=== PATIENT | female | born 1955 ===

== ENCOUNTER 2019-11-10 12:55 | IRF | payer OTHER, SELFPAY ==
[2019-11-10 12:55] VITALS: BP 123/67; PULSE 101; RESP 19; TEMP 36.2; O2SAT 96; BMI 24.2
--- NOTE | 2019-11-10 13:14 | ADMGEN ---
This patient, Karoline Marcum, was admitted to [facility] Room 219-01. Patient/family oriented to hospital policies and general routines including ID bracelet, bed and alarms, visiting hours, pain management, procedures, bathroom and other care routines, personal items, smoking policy, room service/diet, and visiting hours. Valuables list has been completed. Information on how to activate the Rapid Response Team has been discussed. Patient/Family are encouraged to report perceived risks to care and to ask questions if they do not understand what they are told or what they should do.
[2019-11-10 15:28] VITALS: BMI 24.2
--- NOTE | 2019-11-10 16:15 | PCCCNOTE ---
On 11/10/19, the student, [Omega Nam ], provided care and completed [facility] documentation on this patient. I have reviewed the student's documentation and agree with the findings.
[2019-11-10 17:14] LABS: Glucose Point of Care 119 (65-105)
[2019-11-10] MEDS: GABAPENTIN 300 MG CAPSULE 900 MG PO (17:50)
[2019-11-10] MEDS: TRIAMCINOLONE ACET 0.1% CREAM 15 GM TUBE 1 APPLIC TOPICAL (17:51)
[2019-11-10] MEDS: ASPIRIN 81 MG CHEWABLE TABLET PO (20:34)
[2019-11-10 20:36] VITALS: PULSE 98
[2019-11-10] MEDS: carvediloL 6.25 MG TABLET PO (20:36)
[2019-11-10] MEDS: CEFDINIR 300 MG CAPSULE PO (20:36)
[2019-11-10] MEDS: DICYCLOMINE HCL 10 MG CAPSULE 20 MG PO (20:37)
[2019-11-10] MEDS: guaiFENesin 12 HR 600 MG TABCR 1200 MG PO (20:38)
[2019-11-10] MEDS: FAMOTIDINE 10 MG TABLET PO (20:38)
[2019-11-10] MEDS: LOVASTATIN 20 MG TABLET 40 MG PO (20:39)
[2019-11-10] MEDS: MELOXICAM 7.5 MG TABLET 15 MG PO (20:40)
[2019-11-10] MEDS: polyethylene glycoL 3350 17 GM POWD.PACK PO (20:40)
[2019-11-10] MEDS: MELATONIN 5 MG TABLET PO (20:40)
[2019-11-10] MEDS: traZODone HCL 50 MG TABLET 150 MG PO (20:42)
[2019-11-10] MEDS: FLUTICASONE/SALMETEROL 115-21 MCG INHALER 1 PUFF 2 PUFF INHALATION (20:55)
[2019-11-10 21:04] VITALS: PULSE 97; RESP 18
[2019-11-10 22:00] VITALS: BP 121/77; PULSE 109; RESP 16; TEMP 36.6; O2SAT 100
[2019-11-11 04:56] LABS: Basophils Absolute Auto 0.1 K/mm3 (0.0-0.1); Basophils Percent Auto 0.9 % (0.2-1.2); Eosinophils Absolute Auto 0.3 K/mm3 (0-0.3); Eosinophils Percent Auto 4.1 % (0-4.4); Hematocrit 28.9 % (37.0-47.0); Hemoglobin 9.3 g/dL (12.0-15.0); Immature Granulocyte Absolute 0.28 K/mm3 (0.00-0.031); Immature Granulocyte Percent A 3.7 % (0-0.5); Mean Corpuscular HGB Conc 32.2 g/dl (32-36); Mean Corpuscular Hemoglobin 28.9 pg (26-34); Mean Corpuscular Volume 89.8 fl (80-100); Mean Platelet Volume 9.4 fl (7.4-10.4); Monocytes Absolute Auto 1.2 K/mm3 (0.1-0.6); Monocytes Percent Auto 16.4 % (2.6-8.5); Neutrophils Absolute Auto 2.9 K/mm3 (1.3-6.7); Neutrophils Percent Auto 38.9 % (45.5-73.1); Platelet Count Result 311 k/mm3 (150-375); Red Blood Count 3.22 M/mm3 (4.2-5.4); Red Cell Distribution Width 13.5 % (11.5-14.5); White Blood Count 7.5 K/mm3 (4.5-10.0)
[2019-11-11 05:07] LABS: Hemoglobin A1C 6.2 % (<5.7)
[2019-11-11 05:08] LABS: Blood Urea Nitrogen 20 mg/dL (7-17); Calcium 10.8 mg/dL (8.4-10.2); Carbon Dioxide 29 mmol/L (22-30); Chloride 99 mmol/L (98-107); Estimated CRCL calculation 52 ml/min; Estimated Glomerular Filt Rate 56; Glucose 166 mg/dL (65-105); Potassium 4.1 mmol/L (3.4-5.0); Sodium 134 mmol/L (137-145)
[2019-11-11 06:00] VITALS: BP 104/65; PULSE 80; RESP 16; TEMP 36.9; O2SAT 100
[2019-11-11] MEDS: LEVOTHYROXINE SODIUM 125 MCG TABLET PO (06:23)
[2019-11-11] MEDS: FLUTICASONE/SALMETEROL 115-21 MCG INHALER 1 PUFF 2 PUFF INHALATION ×2 (07:02→20:55)
[2019-11-11 07:25] LABS: Glucose Point of Care 140 (65-105)
[2019-11-11] MEDS: ARIPIPRAZOLE 5 MG TABLET PO (08:48)
[2019-11-11] MEDS: CEFDINIR 300 MG CAPSULE PO ×2 (08:50→20:36)
[2019-11-11] MEDS: DICYCLOMINE HCL 10 MG CAPSULE 20 MG PO ×2 (08:50→20:38)
[2019-11-11] MEDS: ESCITALOPRAM OXALATE 5 MG TABLET PO (08:57)
[2019-11-11] MEDS: DULoxetine HCL 60 MG CAPSULE.DR PO (08:57)
[2019-11-11] MEDS: FAMOTIDINE 10 MG TABLET PO ×2 (08:57→20:38)
[2019-11-11] MEDS: FLUTICASONE PROPIONATE 0.05% NA SPR 16 GM BTL (*BKC) 2 SPRAY NASAL (08:58)
[2019-11-11] MEDS: FOLIC ACID 1 MG TABLET PO (08:58)
[2019-11-11] MEDS: GABAPENTIN 300 MG CAPSULE 900 MG PO ×3 (08:59→17:49)
[2019-11-11] MEDS: NICOTINE (*PBKC) 21 MG PATCH 1 PATCH TRANSDERM (08:59)
[2019-11-11] MEDS: guaiFENesin 12 HR 600 MG TABCR 1200 MG PO ×2 (08:59→20:36)
[2019-11-11] MEDS: VITAMIN E 400 UNIT CAPSULE 800 UNIT PO (09:00)
[2019-11-11] MEDS: DULoxetine HCL 30 MG CAPSULE.DR PO (09:00)
[2019-11-11 10:40] VITALS: PULSE 80
[2019-11-11] MEDS: ASPIRIN 81 MG CHEWABLE TABLET PO ×2 (10:40→20:38)
[2019-11-11] MEDS: carvediloL 6.25 MG TABLET PO ×2 (10:40→20:38)
[2019-11-11 11:23] VITALS: BMI 24.2
--- NOTE | 2019-11-11 11:30 | WPDREHABHP ---
H&P: HPI History of Present Illness Chief complaint: Right Femoral Neck Fracture Narrative: Karoline Marcum is a 64 year old female HISTORY OF PRESENT ILLNESS: The patient's primary rehab impairment category is 0 0-argcfnrebw-lffsk extremity fracture The etiologic diagnosis is closed angulated subcapital right femoral neck fracture with slight impaction I saw this patient [id number] on December 08, 2019 at 11:30 a.m. The patient is a 64-year-old right-handed white woman with a past medical history of nonischemic cardiomyopathy, depression, hypertension, hyperlipidemia, hypothyroidism, congestive heart failure, diabetes mellitus, neuropathy, coronary artery disease, chronic obstructive pulmonary disease, and stage 3 chronic kidney disease who presented to [facility] on November 03, 2019 after tripping over on her CT and falling onto her right side. She fell or trip over because of her Cat. She was found to have right femoral neck fracture. Then she was transferred to [facility] in a [facility] area the same day. She denies loss of consciousness or head trauma. orthopedic surgery was consulted the patient underwent a right hip hemiarthroplasty and November 05, [address] Perez. cardiology was consulted prior to surgery for clearance and followed patient throughout hospital stay and deemed patient is stable from their standpoint. She is weight-bearing as tolerated to the right lower extremity. She developed pneumonia with an increase in WBC and fever. Patient was started on IV cefepime and vancomycin with subsequent drop in WBCs in fever she completed a course of antibiotics. Patient is receiving p.r.n. nebulizer treatments and inhalers. She is on room air in oxygens saturations are stable at 93% the patient is going to be discharged to us with Lovenox as DVT prophylaxis The patient has not traveled outside the [place] or had contact with someone who is ill that has traveled outside the [place] in the past 21 days. The patient has not traveled to an area of the [place] that is experiencing known transmission of the Coronavirus and has not had close personal contact with anyone that has. The patient does not have a fever chills sore throat she does not have any lower respiratory illness symptoms. Therapy was initiated at the acute care facility and the patient transferred to us from [facility] on November 10 2019 on FALLS OR SURGERIES: The patient has had major surgeries in the 100 days prior to admission. They had falls in the past year. They had falls with injury in the past year. PAST MEDICAL HISTORY: abdominal pain and bloating, acute renal failure, acute respiratory failure with hypoxemia, asthma, cardiomyopathy, cataracts, chronic kidney disease stage 3, chronic obstructive pulmonary disease, coronary artery disease, depression with psychosis, diabetes mellitus type 2, diabetic neuropathy, diastolic congestive heart failure, hypothyroidism, encephalopathy, gastroesophageal reflux disease, urinary tract infection, hypercholesterolemia, hyperlipidemia, hypertension, major depressive disorder, muscle weakness generalized, idiopathic peripheral neuropathy /autonomic neuropathy possibly related to chronic alcoholism which she says she quit 5 years ago. 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 She has a tub/shower unit and elevated ADA height toilet. The patient was independent with most ADLs, independent with functional transfers, independent with ambulation. She uses a straight cane for ambulation at baseline. She needs assistan
[2019-11-11 14:00] VITALS: BP 114/72; PULSE 94; RESP 18; TEMP 36; O2SAT 100
--- NOTE | 2019-11-11 14:13 | RPD ---
INDIVIDUALIZED PLAN OF CARE FOR Karoline Marcum Brief Synthesis of Pre-Admission Screen, Post-Admission Evaluation and Therapy Evaluations: The patient presents to rehab with a closed angulated subcapital right femoral neck fracture with slight impaction. Comorbidities include acute respiratory failure with hypoxia, hypercalcemia, L5 spondylolisthesis, congestive heart failure, non-ischemic cardiomyopathy, hypothyroidism, depression, diabetes mellitus type 2 with neuropathy, chronic kidney disease stage 3, chronic obstructive pulmonary disease, coronary artery disease, hypertension, hyperlipidemia, acute pain, hyponatremia, sepsis, pneumonia, and acute blood loss anemia. The patient?s needs will be best met in an intensive program vs. at a lower level of care. The patient requires physician services for medical oversight, management of postop complications in setting of present comorbidities, and pain management. The patient requires nursing services for DVT prophylactics, infection protection, medication management and education, pressure relief, and wound care. Deficits include:ADLs, Balance, Endurance, Family Training/Education, Mobility, Pain Management, ROM, Safety, Strength, and Transfers. Head Up Operator/Case Management for: Discharge Planning and Patient/Family Counseling Physical Therapy: 5 days per week for 90 minutes. Treatments may include: Therapeutic Exercise, Gait Training, Neuromuscular Re-education, Transfer Training, Community Reintegration, Bed Mobility, Patient/Family Education, Wheelchair Mobility Group Therapy/Concurrent Therapy Rationales: -Improve attention span during functional activities in a distracted environment. -Enhance problem solving and/or adequate judgment skills during functional activities in a distracted environment. -Promote increased safety awareness in a distracted environment to reduce fall risk with functional tasks, transfers, and ambulation to allow a more safe, self-sufficient return to the home environment. -Improve dynamic balance skills to promote safety and independence with functional activities in a distracted environment for maximum gain. Occupational Therapy: 5 days per week for 90 minutes. Treatments may include: Therapeutic Exercise, Therapeutic Activity, Cognitive Training, Self-Care Transfer Training, Community Reintegration, Home Management, Patient/Family Education, Wheelchair Mobility Training, Energy Conservation Training Group Therapy/Concurrent Therapy Rationales: -Allow therapist to observe and teach generalization and carry-over of skills learned in individual therapy. -Enhance problem solving and sequencing skills during therapeutic activities in a distracted environment. -Promote increased safety awareness in a realistic setting to reduce fall risk with functional tasks due to visual and verbal distractions. -Increase functional level with ADLs, ADL transfers and use of adaptive equipment through therapeutic activities with others while promoting safety to allow a more safe, self-sufficient return home. Medical Prognosis: Good Anticipated Length of Stay: 10 days Rehab Goals: Eating Goal: 06-Independent Oral Hygiene Goal: 06-Independent Toileting Hygiene Goal: 06-Independent Shower/Bathe Self Goal: 06-Independent Upper Body Dressing Goal: 06-Independent Lower Body Dressing Goal: 06-Independent Putting On/Taking Off Footwear Goal: 06-Independent Rolling Left and Right Goal: 05-Setup or Clean Up Assistance Sit to Lying Goal: 06-Independent Lying to Sitting on Side of Bed Goal: 06-Independent Sit to Stand Goal: 06-Independent Chair/Vpv-hk-[id number] Transfer Goal: 06-Independent Toilet Transfer Goal: 06-Independent Car Transfer Goal: 06-Independent Walk 10' Goal: 06-Independent Walk 50' with Two Turns Goal: 06-Independent Walk 150' Goal: 06-Independent Walk 10' on Uneven Surface Goal: 06-Independent 1 Step (Curb) Goal: 06-Independent 4 Steps Goal: 06-Independent 12 Steps Goal Score: 0
[2019-11-11] MEDS: TRIAMCINOLONE ACET 0.1% CREAM 15 GM TUBE 1 APPLIC TOPICAL (17:50)
[2019-11-11 18:06] LABS: Glucose Point of Care 134 (65-105)
[2019-11-11] MEDS: ENOXAPARIN 30 MG/0.3 ML SYRINGE SUB-Q (18:17)
--- NOTE | 2019-11-11 19:09 | PC.NURSE ---
rt hip coverlet dsg changed-lalitha intact. Well approximated.
[2019-11-11] MEDS: polyethylene glycoL 3350 17 GM POWD.PACK PO (20:35)
[2019-11-11] MEDS: LOVASTATIN 20 MG TABLET 40 MG PO (20:36)
[2019-11-11] MEDS: MELATONIN 5 MG TABLET PO (20:36)
[2019-11-11 20:38] VITALS: PULSE 78
[2019-11-11] MEDS: traZODone HCL 50 MG TABLET 150 MG PO (20:38)
[2019-11-11] MEDS: MELOXICAM 7.5 MG TABLET 15 MG PO (20:39)
[2019-11-11] MEDS: MAGNESIUM HYDROXIDE SUSP 30 ML UDC PO (20:50)
[2019-11-11 22:00] VITALS: BP 122/65; PULSE 92; RESP 20; TEMP 36.1; O2SAT 98
[2019-11-12] MEDS: BISACODYL 10 MG SUPPOSITORY RECTAL (05:12)
[2019-11-12] MEDS: LEVOTHYROXINE SODIUM 125 MCG TABLET PO (05:13)
[2019-11-12 05:35] VITALS: BP 125/72; PULSE 84; RESP 18; TEMP 35.2; O2SAT 97
[2019-11-12 06:47] LABS: Glucose Point of Care 149 (65-105)
[2019-11-12] MEDS: FLUTICASONE/SALMETEROL 115-21 MCG INHALER 1 PUFF 2 PUFF INHALATION ×2 (07:37→19:44)
[2019-11-12] MEDS: CEFDINIR 300 MG CAPSULE PO ×2 (08:37→20:18)
[2019-11-12] MEDS: ASPIRIN 81 MG CHEWABLE TABLET PO ×2 (08:37→20:18)
[2019-11-12] MEDS: DICYCLOMINE HCL 10 MG CAPSULE 20 MG PO ×2 (08:37→20:23)
[2019-11-12] MEDS: ARIPIPRAZOLE 5 MG TABLET PO (08:37)
[2019-11-12] MEDS: ESCITALOPRAM OXALATE 5 MG TABLET PO (08:38)
[2019-11-12] MEDS: DULoxetine HCL 60 MG CAPSULE.DR PO (08:38)
[2019-11-12] MEDS: DULoxetine HCL 30 MG CAPSULE.DR PO (08:38)
[2019-11-12] MEDS: FLUTICASONE PROPIONATE 0.05% NA SPR 16 GM BTL (*BKC) 2 SPRAY NASAL (08:38)
[2019-11-12] MEDS: FAMOTIDINE 10 MG TABLET PO ×2 (08:38→20:19)
[2019-11-12] MEDS: FOLIC ACID 1 MG TABLET PO (08:39)
[2019-11-12] MEDS: NICOTINE (*PBKC) 21 MG PATCH 1 PATCH TRANSDERM (08:39)
[2019-11-12] MEDS: GABAPENTIN 300 MG CAPSULE 900 MG PO ×3 (08:39→17:09)
[2019-11-12] MEDS: guaiFENesin 12 HR 600 MG TABCR 1200 MG PO ×2 (08:39→20:18)
[2019-11-12] MEDS: VITAMIN E 400 UNIT CAPSULE 800 UNIT PO (08:39)
[2019-11-12 08:40] VITALS: PULSE 84
[2019-11-12] MEDS: carvediloL 6.25 MG TABLET PO ×2 (08:40→20:19)
[2019-11-12 14:00] VITALS: BP 138/74; PULSE 88; RESP 19; TEMP 36.1; O2SAT 99
[2019-11-12] MEDS: ENOXAPARIN 40 MG/0.4 ML SYRINGE SUB-Q (15:56)
[2019-11-12] MEDS: TRIAMCINOLONE ACET 0.1% CREAM 15 GM TUBE 1 APPLIC TOPICAL (17:10)
[2019-11-12 17:23] LABS: Glucose Point of Care 138 (65-105)
[2019-11-12] MEDS: traZODone HCL 50 MG TABLET 150 MG PO (20:17)
[2019-11-12] MEDS: LOVASTATIN 20 MG TABLET 40 MG PO (20:18)
[2019-11-12] MEDS: MELATONIN 5 MG TABLET PO (20:18)
[2019-11-12] MEDS: MELOXICAM 7.5 MG TABLET 15 MG PO (20:18)
[2019-11-12 20:19] VITALS: PULSE 84
[2019-11-12] MEDS: polyethylene glycoL 3350 17 GM POWD.PACK PO (20:23)
[2019-11-12 22:00] VITALS: BP 91/62; PULSE 85; RESP 18; TEMP 35.9; O2SAT 100
[2019-11-13 05:55] VITALS: BP 108/59; PULSE 67; RESP 18; TEMP 35.7; O2SAT 92
[2019-11-13] MEDS: LEVOTHYROXINE SODIUM 125 MCG TABLET PO (06:31)
[2019-11-13 07:02] LABS: Glucose Point of Care 123 (65-105)
[2019-11-13] MEDS: FLUTICASONE/SALMETEROL 115-21 MCG INHALER 1 PUFF 2 PUFF INHALATION ×2 (07:54→19:43)
[2019-11-13 08:54] VITALS: PULSE 67
[2019-11-13] MEDS: ARIPIPRAZOLE 5 MG TABLET PO (08:54)
[2019-11-13] MEDS: ASPIRIN 81 MG CHEWABLE TABLET PO ×2 (08:54→19:41)
[2019-11-13] MEDS: carvediloL 6.25 MG TABLET PO ×2 (08:54→19:42)
[2019-11-13] MEDS: CEFDINIR 300 MG CAPSULE PO ×2 (08:55→19:38)
[2019-11-13] MEDS: DULoxetine HCL 30 MG CAPSULE.DR PO (08:56)
[2019-11-13] MEDS: DICYCLOMINE HCL 10 MG CAPSULE 20 MG PO ×2 (08:56→19:39)
[2019-11-13] MEDS: DULoxetine HCL 60 MG CAPSULE.DR PO (08:58)
[2019-11-13] MEDS: FOLIC ACID 1 MG TABLET PO (08:58)
[2019-11-13] MEDS: ESCITALOPRAM OXALATE 5 MG TABLET PO (08:58)
[2019-11-13] MEDS: GABAPENTIN 300 MG CAPSULE 900 MG PO ×3 (08:58→17:56)
[2019-11-13] MEDS: FAMOTIDINE 10 MG TABLET PO ×2 (08:58→19:39)
[2019-11-13] MEDS: FLUTICASONE PROPIONATE 0.05% NA SPR 16 GM BTL (*BKC) 2 SPRAY NASAL (08:58)
[2019-11-13] MEDS: NICOTINE (*PBKC) 21 MG PATCH 1 PATCH TRANSDERM (08:59)
[2019-11-13] MEDS: guaiFENesin 12 HR 600 MG TABCR 1200 MG PO ×2 (08:59→19:37)
[2019-11-13] MEDS: VITAMIN E 400 UNIT CAPSULE 800 UNIT PO (08:59)
--- NOTE | 2019-11-13 12:00 | WPDNEURORHBP ---
Subjective Date/time seen: S/P right femur neck fracture with ICD dual chamber generator S/p partial [id number]/05/20 12:00 Review of Systems Review of Systems: All systems reviewed & are unremarkable except as noted in HPI and below Functional Status Ambulation Ability Ability to Ambulate 10 Feet: Standby Assistance Ability to Ambulate 50 Feet With 2 Turns: Standby Assistance Ability to Ambulate 150 Feet: Standby Assistance Ambulation Assistive Devices: Walker, Wheeled Transfers Ability Ability to Transfer In/Out of Chair: Standby Assistance Exam Const: General: cooperative, comfortable, no acute distress and well developed Orientation/consciousness: patient oriented x3 Other: s/p femur fx HENMT: Head: normal to inspection General nose exam: Normal external nose present and No nasal discharge present Face and sinus: normal facial exam Mouth: Yes Normal oral and palatal mucosa present Eyes: General: appearance normal, both eyes and all related structures Neck: Neck: full ROM Resp: Effort & Inspection: normal respiratory effort Cardio: Rate: regular rate Rhythm: regular rhythm GI: Auscultation: normal bowel sounds Skin: General skin exam: no rashes or lesions noted Neuro: General: patient oriented x3 and moves all extremities Cranial nerves: Yes CN's II-XII intact bilaterally, Yes Equal, round and reactive pupils present, Yes Bilaterally intact EOM present, Yes Nystagmus not present, Yes Normal facial strength present, Yes facial symmetry, Yes Midline tongue present, Yes Ability to bilaterally rotate head present and Yes Ability to bilaterally elevate shoulders present Cognition (Neuro): normal cognition Speech: normal speech Motor exam (neuro): 5/5 motor strength present throughout Sensory Exam: Sensory deficit (Neuro) (distally) Deep tendon reflexes (DTR's): Right ankle reflex intensity grade: 0 and Left ankle reflex intensity grade: 0 Plantar Reflex Responses: downgoing: bilateral Extrem: General: normal to inspection Psych: Appearance: grossly normal Objective Data Vital Signs Vital Signs: Vital Signs - 24 hr 11/12/19 14:00 11/12/19 20:19 11/12/19 22:00 Temperature 36.1 C L 35.9 C L Pulse Rate 88 84 85 Respiratory Rate 19 18 Blood Pressure 138/74 91/62 L Pulse Oximetry 99 100 11/13/19 05:55 11/13/19 08:54 Temperature 35.7 C L Pulse Rate 67 67 Respiratory Rate 18 Blood Pressure 108/59 L Pulse Oximetry 92 Intake/Output Intake/Output: Intake & Output 11/10/19 11/11/19 11/12/19 11/13/19 23:59 23:59 23:59 23:59 Intake Total 240 840 840 480 Balance 240 840 840 480 Meds/Results Medications: Active Medications Generic Name Dose Route Start Last Admin Trade Name Freq PRN Reason Stop Dose Admin Acetaminophen 650 mg 11/10/19 14:24 Tylenol Tablet PO Q6H PRN Pain (Scale Score 1-3) Hydrocodone Bitart/Acetaminophen 1 tab 11/10/19 14:24 [place] 5-325 Mg PO Q4H PRN Pain (Scale Score 4-6) Hydrocodone Bitart/Acetaminophen 2 tab 11/10/19 14:24 11/13/19 08:53 [place] 5-325 Mg PO 2 tab Q4H PRN Administration Pain (Scale Score 7-10) Al Hydrox/Mg Hydrox/Simethicone 30 ml 11/10/19 14:24 Mylanta PO TID PRN Indigestion Albuterol 2 puff 11/10/19 14:24 Proventil Hfa INHALATION Q6H PRN Shortness Of Breath Aripiprazole 5 mg 11/11/19 09:00 11/13/19 08:54 Abilify PO 5 mg DAILY KYLE Administration Artificial Tears 1 drop 11/10/19 17:00 11/13/19 08:54 Artificial Tears EACH EYE 1 drop TID KYLE Administration Aspirin 81 mg 11/10/19 21:00 11/13/19 08:54 Aspirin Chewable PO 81 mg Q12HR KYLE Administration Benzonatate 100 mg 11/10/19 14:24 Tessalon Perles PO TID PRN Cough Bisacodyl 10 mg 11/10/19 14:24 11/12/19 05:12 Dulcolax Suppository RECTAL 10 mg DAILY PRN Administration Constipation Carvedilol 6.25 mg 11/10/19 21:00 11/13/19 08:54 C
[2019-11-13 14:00] VITALS: BP 113/72; PULSE 98; RESP 20; TEMP 36.1; O2SAT 100
[2019-11-13] MEDS: ENOXAPARIN 40 MG/0.4 ML SYRINGE SUB-Q (14:54)
[2019-11-13 17:17] LABS: Glucose Point of Care 147 (65-105)
[2019-11-13] MEDS: TRIAMCINOLONE ACET 0.1% CREAM 15 GM TUBE 1 APPLIC TOPICAL (17:56)
[2019-11-13] MEDS: MELOXICAM 7.5 MG TABLET 15 MG PO (19:38)
[2019-11-13] MEDS: BENZONATATE 100 MG CAPSULE PO (19:39)
[2019-11-13] MEDS: traZODone HCL 50 MG TABLET 150 MG PO (19:40)
[2019-11-13 19:42] VITALS: PULSE 90
[2019-11-13] MEDS: LOVASTATIN 20 MG TABLET 40 MG PO (19:44)
[2019-11-13] MEDS: polyethylene glycoL 3350 17 GM POWD.PACK PO (19:45)
[2019-11-13] MEDS: MELATONIN 5 MG TABLET PO (19:45)
[2019-11-13] MEDS: DOCUSATE SODIUM 100 MG CAPSULE PO (19:48)
[2019-11-13 22:00] VITALS: BP 123/59; PULSE 87; RESP 18; TEMP 36.7; O2SAT 100
[2019-11-14 06:00] VITALS: BP 125/67; PULSE 74; RESP 17; TEMP 36.6; O2SAT 100
[2019-11-14] MEDS: LEVOTHYROXINE SODIUM 125 MCG TABLET PO (06:15)
[2019-11-14 06:59] LABS: Glucose Point of Care 127 (65-105)
[2019-11-14] MEDS: FLUTICASONE/SALMETEROL 115-21 MCG INHALER 1 PUFF 2 PUFF INHALATION ×2 (08:33)
[2019-11-14] MEDS: ARIPIPRAZOLE 5 MG TABLET PO (09:16)
[2019-11-14] MEDS: NICOTINE (*PBKC) 21 MG PATCH 1 PATCH TRANSDERM (09:16)
[2019-11-14] MEDS: FLUTICASONE PROPIONATE 0.05% NA SPR 16 GM BTL (*BKC) 2 SPRAY NASAL (09:16)
[2019-11-14 09:17] VITALS: PULSE 74
[2019-11-14] MEDS: ASPIRIN 81 MG CHEWABLE TABLET PO ×2 (09:17→21:50)
[2019-11-14] MEDS: CEFDINIR 300 MG CAPSULE PO ×2 (09:17→21:50)
[2019-11-14] MEDS: carvediloL 6.25 MG TABLET PO ×2 (09:17→21:50)
[2019-11-14] MEDS: DICYCLOMINE HCL 10 MG CAPSULE 20 MG PO ×2 (09:18→21:50)
[2019-11-14] MEDS: DOCUSATE SODIUM 100 MG CAPSULE PO ×2 (09:19→21:51)
[2019-11-14] MEDS: DULoxetine HCL 60 MG CAPSULE.DR PO (09:19)
[2019-11-14] MEDS: FOLIC ACID 1 MG TABLET PO (09:20)
[2019-11-14] MEDS: GABAPENTIN 300 MG CAPSULE 900 MG PO ×3 (09:20→17:12)
[2019-11-14] MEDS: DULoxetine HCL 30 MG CAPSULE.DR PO (09:20)
[2019-11-14] MEDS: VITAMIN E 400 UNIT CAPSULE 800 UNIT PO (09:21)
[2019-11-14] MEDS: FAMOTIDINE 10 MG TABLET PO ×2 (09:21→21:51)
[2019-11-14] MEDS: guaiFENesin 12 HR 600 MG TABCR 1200 MG PO ×2 (09:21→21:51)
[2019-11-14] MEDS: ESCITALOPRAM OXALATE 5 MG TABLET PO (09:21)
[2019-11-14] MEDS: polyethylene glycoL 3350 17 GM POWD.PACK PO ×2 (09:47→21:54)
[2019-11-14] MEDS: ENOXAPARIN 40 MG/0.4 ML SYRINGE SUB-Q (09:47)
[2019-11-14] MEDS: ACETAMINOPHEN 325 MG TABLET 650 MG PO (13:31)
[2019-11-14 14:00] VITALS: BP 128/76; PULSE 90; RESP 20; TEMP 36.5; O2SAT 98
--- NOTE | 2019-11-14 14:43 | PCPTNOTE ---
Karoline Marcum was evaluated for a wheeled walker on 11/14/2019 by this physical therapist obstetric assistant. The wheeled walker will resolve patient's mobility limitations and will be used for ADL's within the home. The patient can safely use the wheeled walker. ?The wheeled walker will resolve the patient?s mobility deficits, including decreased strength, endurance and impaired balance.
[2019-11-14 16:56] LABS: Glucose Point of Care 119 (65-105)
[2019-11-14] MEDS: TRIAMCINOLONE ACET 0.1% CREAM 15 GM TUBE 1 APPLIC TOPICAL (17:14)
[2019-11-14 20:17] VITALS: PULSE 78; RESP 18
[2019-11-14 21:50] VITALS: PULSE 78
[2019-11-14] MEDS: LOVASTATIN 20 MG TABLET 40 MG PO (21:52)
[2019-11-14] MEDS: MELOXICAM 7.5 MG TABLET 15 MG PO (21:53)
[2019-11-14] MEDS: MELATONIN 5 MG TABLET PO (21:53)
[2019-11-14] MEDS: traZODone HCL 50 MG TABLET 150 MG PO (21:54)
[2019-11-14 22:00] VITALS: BP 130/61; PULSE 79; RESP 20; TEMP 36.8; O2SAT 100
[2019-11-14] MEDS: BISACODYL 10 MG SUPPOSITORY RECTAL (22:00)
[2019-11-15] VITALS (7 sets, daily range): BP systolic 101–121; BP diastolic 61–79; PULSE 70–85; RESP 18–20; TEMP 36.2–36.6; O2SAT 94–99
[2019-11-15] MEDS: LEVOTHYROXINE SODIUM 125 MCG TABLET PO (05:49)
[2019-11-15 06:44] LABS: Glucose Point of Care 119 (65-105)
[2019-11-15] MEDS: GABAPENTIN 300 MG CAPSULE 900 MG PO ×3 (09:23→17:03)
[2019-11-15] MEDS: NICOTINE (*PBKC) 21 MG PATCH 1 PATCH TRANSDERM (09:23)
[2019-11-15] MEDS: VITAMIN E 400 UNIT CAPSULE 800 UNIT PO (09:23)
[2019-11-15] MEDS: CEFDINIR 300 MG CAPSULE PO ×2 (09:24→21:09)
[2019-11-15] MEDS: ERGOCALCIFEROL 50,000 UNIT CAPSULE 50000 UNITS PO (09:24)
[2019-11-15] MEDS: ASPIRIN 81 MG CHEWABLE TABLET PO ×2 (09:24→20:21)
[2019-11-15] MEDS: carvediloL 6.25 MG TABLET PO ×2 (09:24→20:22)
[2019-11-15] MEDS: ARIPIPRAZOLE 5 MG TABLET PO (09:25)
[2019-11-15] MEDS: DOCUSATE SODIUM 100 MG CAPSULE PO ×2 (09:26→21:09)
[2019-11-15] MEDS: DICYCLOMINE HCL 10 MG CAPSULE 20 MG PO ×2 (09:26→20:20)
[2019-11-15] MEDS: FAMOTIDINE 10 MG TABLET PO ×2 (09:26→20:20)
[2019-11-15] MEDS: ESCITALOPRAM OXALATE 5 MG TABLET PO (09:26)
[2019-11-15] MEDS: FOLIC ACID 1 MG TABLET PO (09:27)
[2019-11-15] MEDS: DULoxetine HCL 30 MG CAPSULE.DR PO (09:27)
[2019-11-15] MEDS: ENOXAPARIN 40 MG/0.4 ML SYRINGE SUB-Q (09:27)
[2019-11-15] MEDS: FLUTICASONE PROPIONATE 0.05% NA SPR 16 GM BTL (*BKC) 2 SPRAY NASAL (09:27)
[2019-11-15] MEDS: DULoxetine HCL 60 MG CAPSULE.DR PO (09:27)
[2019-11-15] MEDS: guaiFENesin 12 HR 600 MG TABCR 1200 MG PO ×2 (09:28→20:20)
[2019-11-15] MEDS: polyethylene glycoL 3350 17 GM POWD.PACK PO ×2 (09:28→21:09)
[2019-11-15] MEDS: FLUTICASONE/SALMETEROL 115-21 MCG INHALER 1 PUFF 2 PUFF INHALATION ×2 (09:44→21:37)
--- NOTE | 2019-11-15 10:44 | WPDNEURORHBP ---
Subjective Date/time seen: 11/15/19 10:44 Interval history: this 64-year-old woman is here after having had surgery her right femoral neck fracture. She is doing fairly well however does complain of neuropathic pain which I will look into it what medication she will use after reviewing all her medication at this point she is denies any headache nausea vomiting chest pain shortness of breath. She has been using a wheeled walker of 250 feet and has been able to use a full flight of stare Review of Systems Review of Systems: All systems reviewed & are unremarkable except as noted in HPI and below Functional Status Ambulation Ability Ability to Ambulate 10 Feet: Standby Assistance Ability to Ambulate 50 Feet With 2 Turns: Standby Assistance Ability to Ambulate 150 Feet: Standby Assistance Ambulation Assistive Devices: Walker, Wheeled Transfers Ability Ability to Transfer In/Out of Chair: Standby Assistance Exam Const: General: comfortable and no acute distress HENMT: General nose exam: Normal nares present Mouth: Yes moist mucous membranes Eyes: General: appearance normal, both eyes and all related structures Neck: Neck: supple and no JVD Resp: Effort & Inspection: normal respiratory effort Auscultation: clear to auscultation bilaterally Cardio: Rate: regular rate Rhythm: regular rhythm Skin: General skin exam: normal color and no rashes or lesions noted Neuro: Other: patient is awake alert well oriented follows all commands her weakness is improving issues progressing very well in the rehab Extrem: General: normal to inspection Other: the incision of the hip is clean Psych: Mental Status: mental status grossly normal Objective Data Vital Signs Vital Signs: Vital Signs - 24 hr 11/14/19 14:00 11/14/19 20:17 11/14/19 21:50 Temperature 36.5 C Pulse Rate 90 78 78 Respiratory Rate 20 18 Blood Pressure 128/76 Pulse Oximetry 98 11/14/19 22:00 11/15/19 06:00 11/15/19 09:24 Temperature 36.8 C 36.3 C L Pulse Rate 79 70 70 Respiratory Rate 20 20 Blood Pressure 130/61 101/68 Pulse Oximetry 100 94 Intake/Output Intake/Output: Intake & Output 11/12/19 11/13/19 11/14/19 11/15/19 23:59 23:59 23:59 23:59 Intake Total 840 1080 720 360 Balance 840 1080 720 360 Meds/Results Medications: Active Medications Generic Name Dose Route Start Last Admin Trade Name Freq PRN Reason Stop Dose Admin Acetaminophen 650 mg 11/10/19 14:24 11/14/19 13:31 Tylenol Tablet PO 650 mg Q6H PRN Administration Pain (Scale Score 1-3) Hydrocodone Bitart/Acetaminophen 1 tab 11/10/19 14:24 11/14/19 06:12 [place]ma 5-325 Mg PO 1 tab Q4H PRN Administration Pain (Scale Score 4-6) Hydrocodone Bitart/Acetaminophen 2 tab 11/10/19 14:24 11/15/19 02:15 [place] 5-325 Mg PO 2 tab Q4H PRN Administration Pain (Scale Score 7-10) Al Hydrox/Mg Hydrox/Simethicone 30 ml 11/10/19 14:24 Mylanta PO TID PRN Indigestion Albuterol 2 puff 11/10/19 14:24 Proventil Hfa INHALATION Q6H PRN Shortness Of Breath Aripiprazole 5 mg 11/11/19 09:00 11/15/19 09:25 Abilify PO 5 mg DAILY KYLE Administration Artificial Tears 1 drop 11/10/19 17:00 11/15/19 09:25 Artificial Tears EACH EYE 1 drop TID KYLE Administration Aspirin 81 mg 11/10/19 21:00 11/15/19 09:24 Aspirin Chewable PO 81 mg Q12HR KYLE Administration Benzonatate 100 mg 11/10/19 14:24 11/13/19 19:39 Tessalon Perles PO 100 mg TID PRN Administration Cough Bisacodyl 10 mg 11/10/19 14:24 11/14/19 22:00 Dulcolax Suppository RECTAL 10 mg DAILY PRN Administration Constipation Carvedilol 6.25 mg 11/10/19 21:00 11/15/19 09:24 Coreg PO 6.25 mg Q12HR KYLE Administration Cefdinir 300 mg 11/10/19 21:00 11/15/19 09:24 Omnicef PO 300 mg Q12HR KYLE Administration Dicyclomine HCl 20 mg 11/10/19 21:00 11/15/19 09:26 Bentyl Capsule PO
[2019-11-15] MEDS: TRIAMCINOLONE ACET 0.1% CREAM 15 GM TUBE 1 APPLIC TOPICAL (17:03)
[2019-11-15 17:24] LABS: Glucose Point of Care 114 (65-105)
[2019-11-15] MEDS: PREGABALIN 50 MG CAPSULE PO (20:19)
[2019-11-15] MEDS: BENZONATATE 100 MG CAPSULE PO (20:21)
[2019-11-15] MEDS: MELOXICAM 7.5 MG TABLET 15 MG PO (20:21)
[2019-11-15] MEDS: traZODone HCL 50 MG TABLET 150 MG PO (20:22)
[2019-11-15] MEDS: MELATONIN 5 MG TABLET PO (20:22)
[2019-11-15] MEDS: LOVASTATIN 20 MG TABLET 40 MG PO (21:09)
[2019-11-15] MEDS: ACETAMINOPHEN 325 MG TABLET 650 MG PO (21:46)
[2019-11-16 06:00] VITALS: BP 112/57; PULSE 64; RESP 16; TEMP 36.9; O2SAT 93
[2019-11-16] MEDS: LEVOTHYROXINE SODIUM 125 MCG TABLET PO (06:27)
[2019-11-16 06:45] LABS: Glucose Point of Care 106 (65-105)
[2019-11-16] MEDS: FLUTICASONE/SALMETEROL 115-21 MCG INHALER 1 PUFF 2 PUFF INHALATION ×2 (08:40→20:03)
[2019-11-16] MEDS: DICYCLOMINE HCL 10 MG CAPSULE 20 MG PO ×2 (09:10→20:12)
[2019-11-16] MEDS: ASPIRIN 81 MG CHEWABLE TABLET PO ×2 (09:10→20:10)
[2019-11-16] MEDS: CEFDINIR 300 MG CAPSULE PO ×2 (09:10→20:07)
[2019-11-16] MEDS: DOCUSATE SODIUM 100 MG CAPSULE PO ×2 (09:11→20:11)
[2019-11-16] MEDS: FLUTICASONE PROPIONATE 0.05% NA SPR 16 GM BTL (*BKC) 2 SPRAY NASAL (09:11)
[2019-11-16] MEDS: DULoxetine HCL 60 MG CAPSULE.DR PO (09:11)
[2019-11-16] MEDS: DULoxetine HCL 30 MG CAPSULE.DR PO (09:11)
[2019-11-16] MEDS: NICOTINE (*PBKC) 21 MG PATCH 1 PATCH TRANSDERM (09:12)
[2019-11-16] MEDS: FOLIC ACID 1 MG TABLET PO (09:12)
[2019-11-16] MEDS: GABAPENTIN 300 MG CAPSULE 900 MG PO ×3 (09:12→17:27)
[2019-11-16] MEDS: guaiFENesin 12 HR 600 MG TABCR 1200 MG PO ×2 (09:12→20:10)
[2019-11-16] MEDS: FAMOTIDINE 10 MG TABLET PO ×2 (09:12→20:10)
[2019-11-16] MEDS: VITAMIN E 400 UNIT CAPSULE 800 UNIT PO (09:13)
[2019-11-16] MEDS: ENOXAPARIN 40 MG/0.4 ML SYRINGE SUB-Q (09:14)
[2019-11-16 09:16] VITALS: PULSE 64
[2019-11-16] MEDS: carvediloL 6.25 MG TABLET PO ×2 (09:16→20:07)
[2019-11-16] MEDS: PREGABALIN 50 MG CAPSULE PO ×2 (09:48→20:17)
[2019-11-16] MEDS: polyethylene glycoL 3350 17 GM POWD.PACK PO ×2 (09:48→20:09)
--- NOTE | 2019-11-16 11:11 | WPDNEURORHBP ---
Subjective Date/time seen: 11/16/19 11:11 Interval history: This 64-year-old woman is here with the right femoral neck fracture and the status post surgery she is doing very well denies any headache nausea vomiting chest pain shortness of breath fever chills sore throat she has neuropathy predated to her fracture for quite some time and I have started on the medication she is feeling better than yesterday and doing well in rehab Review of Systems Review of Systems: All systems reviewed & are unremarkable except as noted in HPI and below Functional Status Ambulation Ability Ability to Ambulate 10 Feet: Independent Ability to Ambulate 50 Feet With 2 Turns: Independent Ability to Ambulate 150 Feet: Independent Ambulation Assistive Devices: Walker, Wheeled Transfers Ability Ability to Transfer In/Out of Chair: Standby Assistance Exam Const: General: comfortable and no acute distress HENMT: General nose exam: Normal nares present Mouth: Yes moist mucous membranes Eyes: General: appearance normal, both eyes and all related structures Neck: Neck: supple and no JVD Resp: Effort & Inspection: normal respiratory effort Auscultation: clear to auscultation bilaterally Cardio: Rate: regular rate Rhythm: regular rhythm GI: GI Palp: Yes Soft to palpation Auscultation: normal bowel sounds Skin: General skin exam: normal color and no rashes or lesions noted Neuro: Other: patient is awake and alert well oriented doing fairly well engage in therapy and walking quite a bat her overall physical status has improved she does have evidence of peripheral neuropathy which is long-standing Extrem: General: normal to inspection Other: the incision from the right femoral neck fracture is clean and healthy Psych: Mental Status: mental status grossly normal Objective Data Vital Signs Vital Signs: Vital Signs - 24 hr 11/15/19 13:00 11/15/19 14:00 11/15/19 20:22 Temperature 36.2 C L Pulse Rate 78 81 70 Respiratory Rate 20 Blood Pressure 110/66 121/61 Pulse Oximetry 98 99 11/15/19 22:00 11/16/19 06:00 11/16/19 09:16 Temperature 36.6 C 36.9 C Pulse Rate 85 64 64 Respiratory Rate 18 16 Blood Pressure 120/79 112/57 L Pulse Oximetry 98 93 Intake/Output Intake/Output: Intake & Output 07/05/20 07/06/20 07/07/20 07/08/20 23:59 23:59 23:59 23:59 Intake Total 1080 720 840 240 Balance 1080 720 840 240 Meds/Results Medications: Active Medications Generic Name Dose Route Start Last Admin Trade Name Marioq PRN Reason Stop Dose Admin Acetaminophen 650 mg 11/10/19 14:24 11/15/19 21:46 Tylenol Tablet PO 650 mg Q6H PRN Administration Pain (Scale Score 1-3) Hydrocodone Bitart/Acetaminophen 1 tab 11/10/19 14:24 11/15/19 22:33 [place] 5-325 Mg PO 1 tab Q4H PRN Administration Pain (Scale Score 4-6) Hydrocodone Bitart/Acetaminophen 2 tab 11/10/19 14:24 11/16/19 09:09 [place] 5-325 Mg PO 2 tab Q4H PRN Administration Pain (Scale Score 7-10) Al Hydrox/Mg Hydrox/Simethicone 30 ml 11/10/19 14:24 Mylanta PO TID PRN Indigestion Albuterol 2 puff 11/10/19 14:24 Proventil Hfa INHALATION Q6H PRN Shortness Of Breath Aripiprazole 5 mg 11/11/19 09:00 11/15/19 09:25 Abilify PO 5 mg DAILY KYLE Administration Artificial Tears 1 drop 11/10/19 17:00 11/16/19 09:48 Artificial Tears EACH EYE 1 drop TID KYLE Administration Aspirin 81 mg 11/10/19 21:00 11/16/19 09:10 Aspirin Chewable PO 81 mg Q12HR KYLE Administration Benzonatate 100 mg 11/10/19 14:24 11/15/19 20:21 Tessalon Perles PO 100 mg TID PRN Administration Cough Bisacodyl 10 mg 11/10/19 14:24 11/14/19 22:00 Dulcolax Suppository RECTAL 10 mg DAILY PRN Administration Constipation Carvedilol 6.25 mg 11/10/19 21:00 11/16/19 09:16 Coreg PO 6.25 mg Q12HR KYLE Administration Cefdinir 300 mg 11/10/19 21:00 11/16/19 09:10 Omnice
[2019-11-16] MEDS: ESCITALOPRAM OXALATE 5 MG TABLET PO (12:25)
[2019-11-16] MEDS: ARIPIPRAZOLE 5 MG TABLET PO (12:25)
[2019-11-16 14:00] VITALS: BP 115/63; PULSE 81; RESP 20; TEMP 36.2; O2SAT 99
[2019-11-16 17:00] LABS: Glucose Point of Care 110 (65-105)
[2019-11-16] MEDS: TRIAMCINOLONE ACET 0.1% CREAM 15 GM TUBE 1 APPLIC TOPICAL (17:27)
[2019-11-16 20:07] VITALS: PULSE 78
[2019-11-16] MEDS: traZODone HCL 50 MG TABLET 150 MG PO (20:07)
[2019-11-16] MEDS: MELOXICAM 7.5 MG TABLET 15 MG PO (20:09)
[2019-11-16] MEDS: MELATONIN 5 MG TABLET PO (20:10)
[2019-11-16] MEDS: LOVASTATIN 20 MG TABLET 40 MG PO (20:11)
[2019-11-16 22:00] VITALS: BP 123/75; PULSE 95; RESP 18; TEMP 35.8; O2SAT 99
[2019-11-17] MEDS: LEVOTHYROXINE SODIUM 125 MCG TABLET PO (05:35)
[2019-11-17 06:00] VITALS: BP 105/51; PULSE 63; RESP 18; TEMP 35.8; O2SAT 96
[2019-11-17 07:16] LABS: Glucose Point of Care 118 (65-105)
[2019-11-17] MEDS: FLUTICASONE/SALMETEROL 115-21 MCG INHALER 1 PUFF 2 PUFF INHALATION ×2 (07:40→20:51)
[2019-11-17] MEDS: GABAPENTIN 300 MG CAPSULE 900 MG PO ×3 (09:07→17:29)
[2019-11-17] MEDS: PREGABALIN 50 MG CAPSULE PO ×2 (09:07→20:28)
[2019-11-17] MEDS: ARIPIPRAZOLE 5 MG TABLET PO (09:08)
[2019-11-17 09:09] VITALS: PULSE 63
[2019-11-17] MEDS: ASPIRIN 81 MG CHEWABLE TABLET PO ×2 (09:09→20:19)
[2019-11-17] MEDS: carvediloL 6.25 MG TABLET PO ×2 (09:09→20:15)
[2019-11-17] MEDS: DICYCLOMINE HCL 10 MG CAPSULE 20 MG PO ×2 (09:10→20:28)
[2019-11-17] MEDS: guaiFENesin 12 HR 600 MG TABCR 1200 MG PO ×2 (09:10→20:18)
[2019-11-17] MEDS: FOLIC ACID 1 MG TABLET PO (09:10)
[2019-11-17] MEDS: DOCUSATE SODIUM 100 MG CAPSULE PO ×2 (09:11→20:14)
[2019-11-17] MEDS: FLUTICASONE PROPIONATE 0.05% NA SPR 16 GM BTL (*BKC) 2 SPRAY NASAL (09:11)
[2019-11-17] MEDS: FAMOTIDINE 10 MG TABLET PO ×2 (09:11→20:18)
[2019-11-17] MEDS: CEFDINIR 300 MG CAPSULE PO (09:11)
[2019-11-17] MEDS: DULoxetine HCL 60 MG CAPSULE.DR PO (09:12)
[2019-11-17] MEDS: DULoxetine HCL 30 MG CAPSULE.DR PO (09:12)
[2019-11-17] MEDS: ENOXAPARIN 40 MG/0.4 ML SYRINGE SUB-Q (09:12)
[2019-11-17] MEDS: ESCITALOPRAM OXALATE 5 MG TABLET PO (09:13)
[2019-11-17] MEDS: polyethylene glycoL 3350 17 GM POWD.PACK PO ×2 (09:13→20:15)
[2019-11-17] MEDS: NICOTINE (*PBKC) 21 MG PATCH 1 PATCH TRANSDERM (09:13)
[2019-11-17] MEDS: VITAMIN E 400 UNIT CAPSULE 800 UNIT PO (09:14)
--- NOTE | 2019-11-17 09:40 | PCOTNOTE ---
Patient has demonstrated independence with all ADLs and functional mobility this date. Patient placed in the Transitional Independent Living Program this date. Discussed with patient her goals for the program. Sheet with goals placed in patient's room. Patient verbalized an understanding to the program
--- NOTE | 2019-11-17 10:19 | PC.NURSE ---
spoke with her orthopedic dr and he OK'd to remove lalitha and steri strip and may discontinue Lovenox and just use low dose ASA.
--- NOTE | 2019-11-17 11:20 | WPDNEURORHBP ---
Subjective Date/time seen: 11/17/19 11:20 Interval history: this 64-year-old woman is here after having had surgery for the right femoral neck fracture. She has done remarkably well in over rehab and is planning to be discharged tomorrow she will be in the independent living and walking fairly good and able to take care of herself her neuropathy is stable Review of Systems Review of Systems: All systems reviewed & are unremarkable except as noted in HPI and below Functional Status Ambulation Ability Ability to Ambulate 10 Feet: Independent Ability to Ambulate 50 Feet With 2 Turns: Independent Ability to Ambulate 150 Feet: Independent Ambulation Assistive Devices: Walker, Wheeled Transfers Ability Ability to Transfer In/Out of Chair: Independent Exam Const: General: comfortable and no acute distress HENMT: General nose exam: Normal nares present Mouth: Yes moist mucous membranes Eyes: General: appearance normal, both eyes and all related structures Neck: Neck: supple and no JVD Resp: Effort & Inspection: normal respiratory effort Auscultation: clear to auscultation bilaterally Cardio: Rate: regular rate Rhythm: regular rhythm GI: GI Palp: Yes Soft to palpation Auscultation: normal bowel sounds Skin: General skin exam: normal color and no rashes or lesions noted Neuro: Other: patient's mental status is normal cranial examination is normal she does have evidence of long-standing peripheral neuropathy which is stable she has been walking fairly good and will be in the independent living program for 24 hours and to be discharged tomorrow Extrem: Other: the incision site from the surgery is clean and healthy Psych: Mental Status: mental status grossly normal Objective Data Vital Signs Vital Signs: Vital Signs - 24 hr 11/16/19 14:00 11/16/19 20:07 11/16/19 22:00 Temperature 36.2 C L 35.8 C L Pulse Rate 81 78 95 Respiratory Rate 20 18 Blood Pressure 115/63 123/75 Pulse Oximetry 99 99 11/17/19 06:00 11/17/19 09:09 Temperature 35.8 C L Pulse Rate 63 63 Respiratory Rate 18 Blood Pressure 105/51 L Pulse Oximetry 96 Intake/Output Intake/Output: Intake & Output 11/14/19 11/15/19 11/16/19 11/17/19 23:59 23:59 23:59 23:59 Intake Total 720 840 720 360 Balance 720 840 720 360 Meds/Results Medications: Active Medications Generic Name Dose Route Start Last Admin Trade Name Freq PRN Reason Stop Dose Admin Acetaminophen 650 mg 11/10/19 14:24 11/15/19 21:46 Tylenol Tablet PO 650 mg Q6H PRN Administration Pain (Scale Score 1-3) Hydrocodone Bitart/Acetaminophen 1 tab 11/10/19 14:24 11/15/19 22:33 [place] 5-325 Mg PO 1 tab Q4H PRN Administration Pain (Scale Score 4-6) Hydrocodone Bitart/Acetaminophen 2 tab 11/10/19 14:24 11/17/19 09:06 [place] 5-325 Mg PO 2 tab Q4H PRN Administration Pain (Scale Score 7-10) Al Hydrox/Mg Hydrox/Simethicone 30 ml 11/10/19 14:24 Mylanta PO TID PRN Indigestion Albuterol 2 puff 11/10/19 14:24 Proventil Hfa INHALATION Q6H PRN Shortness Of Breath Aripiprazole 5 mg 11/11/19 09:00 11/17/19 09:08 Abilify PO 5 mg DAILY KYLE Administration Artificial Tears 1 drop 11/10/19 17:00 11/17/19 09:09 Artificial Tears EACH EYE 1 drop TID KYLE Administration Aspirin 81 mg 11/10/19 21:00 11/17/19 09:09 Aspirin Chewable PO 81 mg Q12HR KYLE Administration Benzonatate 100 mg 11/10/19 14:24 11/15/19 20:21 Tessalon Perles PO 100 mg TID PRN Administration Cough Bisacodyl 10 mg 11/10/19 14:24 11/14/19 22:00 Dulcolax Suppository RECTAL 10 mg DAILY PRN Administration Constipation Carvedilol 6.25 mg 11/10/19 21:00 11/17/19 09:09 Coreg PO 6.25 mg Q12HR KYLE Administration Dicyclomine HCl 20 mg 11/10/19 21:00 11/17/19 09:10 Bentyl Capsule PO 20 mg Q12HR KYLE Administration Docusate Sodium 100 mg 11/13/19 21:00
[2019-11-17 14:00] VITALS: BP 145/64; PULSE 84; RESP 18; TEMP 36.2; O2SAT 99
--- NOTE | 2019-11-17 14:46 | PCOTNOTE ---
It is recommended that this patient, Karoline Marcum, have a tub seat with a back for home use. The patient is at a high risk for falls secondary to a right femoral neck fracture and s/p bipolar hemiarthroplasty. This patient has further impairments of pain, limited range of motion secondary to hip precautions, and decreased endurance. A tub seat with a back is recommended for home use in order to provide optimal safety during bathing tasks. The tub seat with a back will provide increased safety during all bathing tasks. I agree with and certify that the above recommendation is medically necessary. Referring Physician Date
--- NOTE | 2019-11-17 15:55 | PCCCNOTE ---
On 11/17/19, the student, [Omega Nam ], provided care and completed [facility] documentation on this patient. I have reviewed the student's documentation and agree with the findings.
[2019-11-17 17:19] LABS: Glucose Point of Care 109 (65-105)
[2019-11-17] MEDS: TRIAMCINOLONE ACET 0.1% CREAM 15 GM TUBE 1 APPLIC TOPICAL (17:29)
[2019-11-17] MEDS: MELATONIN 5 MG TABLET PO (20:14)
[2019-11-17 20:15] VITALS: PULSE 84
[2019-11-17] MEDS: traZODone HCL 50 MG TABLET 150 MG PO (20:17)
[2019-11-17] MEDS: LOVASTATIN 20 MG TABLET 40 MG PO (20:17)
[2019-11-17] MEDS: MELOXICAM 7.5 MG TABLET 15 MG PO (20:30)
[2019-11-17 20:54] VITALS: PULSE 80; RESP 18
[2019-11-17 22:00] VITALS: BP 108/55; PULSE 74; RESP 18; TEMP 36.8; O2SAT 97
[2019-11-18 05:05] LABS: Basophils Absolute Auto 0.1 K/mm3 (0.0-0.1); Basophils Percent Auto 0.7 % (0.2-1.2); Eosinophils Absolute Auto 0.2 K/mm3 (0-0.3); Eosinophils Percent Auto 2.8 % (0-4.4); Hematocrit 29.8 % (37.0-47.0); Hemoglobin 9.3 g/dL (12.0-15.0); Immature Granulocyte Absolute 0.16 K/mm3 (0.00-0.031); Immature Granulocyte Percent A 1.9 % (0-0.5); Lymphocytes Absolute Auto 2.63 K/mm3 (0.9-3.2); Lymphocytes Percent Auto 30.9 % (18.3-44.2); Mean Corpuscular HGB Conc 31.2 g/dl (32-36); Mean Corpuscular Hemoglobin 29.2 pg (26-34); Mean Corpuscular Volume 93.4 fl (80-100); Mean Platelet Volume 8.8 fl (7.4-10.4); Monocytes Absolute Auto 0.8 K/mm3 (0.1-0.6); Monocytes Percent Auto 9.9 % (2.6-8.5); Neutrophils Absolute Auto 4.6 K/mm3 (1.3-6.7); Neutrophils Percent Auto 53.8 % (45.5-73.1); Platelet Count Result 402 k/mm3 (150-375); Red Blood Count 3.19 M/mm3 (4.2-5.4); Red Cell Distribution Width 14.7 % (11.5-14.5); White Blood Count 8.5 K/mm3 (4.5-10.0)
[2019-11-18 05:24] LABS: Blood Urea Nitrogen 23 mg/dL (7-17); Calcium 10.6 mg/dL (8.4-10.2); Carbon Dioxide 29 mmol/L (22-30); Chloride 103 mmol/L (98-107); Estimated CRCL calculation 52 ml/min; Estimated Glomerular Filt Rate 56; Glucose 136 mg/dL (65-105); Potassium 4.8 mmol/L (3.4-5.0); Sodium 136 mmol/L (137-145)
[2019-11-18] MEDS: LEVOTHYROXINE SODIUM 125 MCG TABLET PO (05:47)
[2019-11-18 06:00] VITALS: BP 117/63; PULSE 75; RESP 16; TEMP 36.6; O2SAT 98
[2019-11-18 06:57] LABS: Glucose Point of Care 121 (65-105)
[2019-11-18] MEDS: ENOXAPARIN 40 MG/0.4 ML SYRINGE SUB-Q (08:49)
[2019-11-18] MEDS: DULoxetine HCL 60 MG CAPSULE.DR PO (08:49)
[2019-11-18] MEDS: ESCITALOPRAM OXALATE 5 MG TABLET PO (08:49)
[2019-11-18] MEDS: ASPIRIN 81 MG CHEWABLE TABLET PO (08:49)
[2019-11-18] MEDS: FAMOTIDINE 10 MG TABLET PO (08:49)
[2019-11-18] MEDS: PREGABALIN 50 MG CAPSULE PO (08:49)
[2019-11-18 08:50] VITALS: PULSE 75
[2019-11-18] MEDS: DULoxetine HCL 30 MG CAPSULE.DR PO (08:50)
[2019-11-18] MEDS: DOCUSATE SODIUM 100 MG CAPSULE PO (08:50)
[2019-11-18] MEDS: carvediloL 6.25 MG TABLET PO (08:50)
[2019-11-18] MEDS: DICYCLOMINE HCL 10 MG CAPSULE 20 MG PO (08:50)
[2019-11-18] MEDS: GABAPENTIN 300 MG CAPSULE 900 MG PO ×3 (08:52→17:31)
[2019-11-18] MEDS: FLUTICASONE PROPIONATE 0.05% NA SPR 16 GM BTL (*BKC) 2 SPRAY NASAL (08:52)
[2019-11-18] MEDS: ARIPIPRAZOLE 5 MG TABLET PO (08:52)
[2019-11-18] MEDS: FOLIC ACID 1 MG TABLET PO (08:52)
[2019-11-18] MEDS: guaiFENesin 12 HR 600 MG TABCR 1200 MG PO (08:52)
[2019-11-18] MEDS: polyethylene glycoL 3350 17 GM POWD.PACK PO (08:53)
[2019-11-18] MEDS: NICOTINE (*PBKC) 21 MG PATCH 1 PATCH TRANSDERM (08:53)
[2019-11-18] MEDS: VITAMIN E 400 UNIT CAPSULE 800 UNIT PO (08:53)
[2019-11-18] MEDS: FLUTICASONE/SALMETEROL 115-21 MCG INHALER 1 PUFF 2 PUFF INHALATION (08:54)
--- NOTE | 2019-11-18 12:04 | WPDNEURORHBP ---
Subjective Date/time seen: 11/18/19 12:04 Interval history: This 64-year-old woman who has longstanding peripheral neuropathy was admitted after having had surgery for the right femoral neck fracture. She has been in our independent living program in the past 24 hours and has done remarkably well without any assistance she is going to be discharged today with follow-up appointments with the surgeon and the primary care physician she denies any headache nausea vomiting chest pain shortness of breath fever chills sore throat Review of Systems Review of Systems: All systems reviewed & are unremarkable except as noted in HPI and below Functional Status Ambulation Ability Ability to Ambulate 10 Feet: Independent Ability to Ambulate 50 Feet With 2 Turns: Independent Ability to Ambulate 150 Feet: Independent Ambulation Assistive Devices: Walker, Wheeled Transfers Ability Ability to Transfer In/Out of Chair: Independent Exam Const: General: comfortable and no acute distress HENMT: General nose exam: Normal nares present Mouth: Yes moist mucous membranes Eyes: General: appearance normal, both eyes and all related structures Neck: Neck: supple and no JVD Resp: Effort & Inspection: normal respiratory effort Auscultation: clear to auscultation bilaterally Cardio: Rate: regular rate Rhythm: regular rhythm GI: GI Palp: Yes Soft to palpation Auscultation: normal bowel sounds Skin: General skin exam: normal color and no rashes or lesions noted Neuro: Other: patient's mental status is normal cranial examination is normal the peripheral neuropathy with different depressed reflexes and the sensory deficit if anything has improved and she is walking and doing things on her own Extrem: General: normal to inspection Other: the incision is clean and healthy and lalitha have been removed Psych: Mental Status: mental status grossly normal Objective Data Vital Signs Vital Signs: Vital Signs - 24 hr 11/17/19 14:00 11/17/19 20:15 11/17/19 20:54 Temperature 36.2 C L Pulse Rate 84 84 80 Respiratory Rate 18 18 Blood Pressure 145/64 H Pulse Oximetry 99 11/17/19 22:00 11/18/19 06:00 11/18/19 08:50 Temperature 36.8 C 36.6 C Pulse Rate 74 75 75 Respiratory Rate 18 16 Blood Pressure 108/55 L 117/63 Pulse Oximetry 97 98 Intake/Output Intake/Output: Intake & Output 11/15/19 11/16/19 11/17/19 11/18/19 23:59 23:59 23:59 23:59 Intake Total 596 366 6880 360 Balance 735 847 7772 360 Meds/Results Medications: Active Medications Generic Name Dose Route Start Last Admin Trade Name Freq PRN Reason Stop Dose Admin Acetaminophen 650 mg 11/10/19 14:24 11/15/19 21:46 Tylenol Tablet PO 650 mg Q6H PRN Administration Pain (Scale Score 1-3) Hydrocodone Bitart/Acetaminophen 1 tab 11/10/19 14:24 11/15/19 22:33 [place] 5-325 Mg PO 1 tab Q4H PRN Administration Pain (Scale Score 4-6) Hydrocodone Bitart/Acetaminophen 2 tab 11/10/19 14:24 11/18/19 11:03 [place] 5-325 Mg PO 2 tab Q4H PRN Administration Pain (Scale Score 7-10) Al Hydrox/Mg Hydrox/Simethicone 30 ml 11/10/19 14:24 Mylanta PO TID PRN Indigestion Albuterol 2 puff 11/10/19 14:24 Proventil Hfa INHALATION Q6H PRN Shortness Of Breath Aripiprazole 5 mg 11/11/19 09:00 11/18/19 08:52 Abilify PO 5 mg DAILY KYLE Administration Artificial Tears 1 drop 11/10/19 17:00 11/18/19 08:51 Artificial Tears EACH EYE 1 drop TID KYLE Administration Aspirin 81 mg 11/10/19 21:00 11/18/19 08:49 Aspirin Chewable PO 81 mg Q12HR KYLE Administration Benzonatate 100 mg 11/10/19 14:24 11/15/19 20:21 Tessalon Perles PO 100 mg TID PRN Administration Cough Bisacodyl 10 mg 11/10/19 14:24 11/14/19 22:00 Dulcolax Suppository RECTAL 10 mg DAILY PRN Administration Constipation Carvedilol 6.25 mg 11/10/19 21:00 11/18/19 08:50 Coreg PO 6.25 mg
--- NOTE | 2019-11-18 13:37 | PCDIET ---
Nutrition Follow-Up Complete: Nutrition Diagnosis: Decreased sodium/fat needs related to cardiovascular disease as evidenced by hx CAD, CHF. Nutrition Goal: Patient to consume 75% of meals or greater. Goal met. Patient consuming 100% of most meals on diabetic diet which is appropriate with addition of heart healthy diet. Patient reports good appetite and denies nutrition c/o or concerns. Last recorded weight is 74.4 kg. Recommend new weight if patient remains in house. Bowel Motility: Last reported BM on 11/17/19. Labs Reviewed: Hgb (9.3), Hct (29.8), Glu (136), Na (136), Ca (10.6) Meds Noted: [place], Proventil, Atrovent, Vitamin E, Colace, Drisdol, Miralax, Pepcid, Folic Acid, Advair Additional Notes: Recommend checking vitamin D level and discontinuing Drisdol, if medically appropriate. Right leg incision well approximated. No documented pressure ulcers. Noted plan for discharge today. Will continue to monitor with same goal if patient remains in house. Nutrition Monitoring and Evaluation: Follow up in 7 days.
[2019-11-18 14:00] VITALS: BP 102/60; PULSE 78; RESP 18; TEMP 36.9; O2SAT 97
--- NOTE | 2019-11-18 16:18 | PCCCNOTE ---
On 11/18/19, the student, [Omega Nam ], provided care and completed [facility] documentation on this patient. I have reviewed the student's documentation and agree with the findings.
[2019-11-18] MEDS: TRIAMCINOLONE ACET 0.1% CREAM 15 GM TUBE 1 APPLIC TOPICAL (17:32)
[2019-11-18 18:00] LABS: Glucose Point of Care 121 (65-105)
--- NOTE | 2019-11-22 13:19 | PM.DS ---
DS: Admitting Diagnosis Admitting Diagnosis Admitting Diagnosis: Unspecified intracapsular fracture of right femur, initial encounter for closed fracture DS: Discharge Diagnosis Discharge Diagnosis (1) GERD (gastroesophageal reflux disease): Code(s): K21.9 - Gastro-esophageal reflux disease without esophagitis Status: Acute (2) Alcoholism: Code(s): F10.20 - Alcohol dependence, uncomplicated Status: Acute (3) COPD (chronic obstructive pulmonary disease): Code(s): J44.9 - Chronic obstructive pulmonary disease, unspecified Status: Acute (4) Diastolic congestive heart failure: Code(s): I50.30 - Unspecified diastolic (congestive) heart failure Status: Acute (5) History of psychosis: Code(s): Z86.59 - Personal history of other mental and behavioral disorders Status: Acute (6) Chronic kidney disease, stage 3: Code(s): N18.3 - Chronic kidney disease, stage 3 (moderate) Status: Acute (7) Diabetes mellitus: Code(s): E11.9 - Type 2 diabetes mellitus without complications Status: Acute (8) Peripheral neuropathy: Code(s): G62.9 - Polyneuropathy, unspecified Status: Acute (9) Cardiomyopathy: Code(s): I42.9 - Cardiomyopathy, unspecified Status: Acute (10) Subcapital fracture of hip: Code(s): S72.019A - Unspecified intracapsular fracture of unspecified femur, initial encounter for closed fracture Status: Acute (11) S/P hip hemiarthroplasty: Code(s): Z96.649 - Presence of unspecified artificial hip joint Status: Acute DS: Summary Hospital Course Reason for hospitalization: the patient was admitted after having had surgery for the hip fracture along with the other diagnosis mentioned above she received the physical therapy of compression therapy and gait training and medical management of underlying medical issues she did remarkably well and was able touching the following independent measures Hospital Course: eating independent oral hygiene independent toileting independent bathing independent upper body dressing independent lower body dressing independent footwear independent rolling in bed independent sitting to lying independent lying to sitting independent [id number] independent car chair transfers independent toilet transfers independent car transfers independent walking 10 feet independent walking 50 feet the 2 turns independent walking 150 feet independent walking 10 feet uneven surfaces independent car better step and depend 4 steps depend 12 steps independent P came back object independent wheelchair 50 feet independent which had 50 feet independent The patient is at home with home health with the follow-up appointments with the other physicians involved with her care in the recent past Time Spent with Patient Time attestation: Total time spent providing and/or coordinating discharge services: Exam Const: General: comfortable and no acute distress HENMT: General nose exam: Normal nares present Mouth: Yes dry mucous membranes Eyes: General: appearance normal, both eyes and all related structures Neck: Neck: supple and no JVD Resp: Effort & Inspection: normal respiratory effort Auscultation: clear to auscultation bilaterally Cardio: Rate: regular rate Rhythm: regular rhythm GI: GI Palp: Yes Soft to palpation Auscultation: normal bowel sounds Skin: General skin exam: normal color and no rashes or lesions noted Neuro: Other: patient remained lucid and well oriented in time place and person hear no sign of psychosis or otherwise were noted and she improved overall with weakness she has had she does have underlying peripheral neuropathy for quite some time and she is aware of it Extrem: General: normal to inspection Psych: Mental Status: mental status grossly normal Discharge Plan Discharge Attending physician on discharge: Rayray Broderick Discharging Clinician: Rayray Broderick
== END 2019-11-18 17:45 | disposition home health service (06) | DRG 560 ==
PROVIDERS: Admitting Provider Psychiatry & Neurology Neurology; PCP Family Medicine Sports Medicine; Visit Provider Psychiatry & Neurology Neurology
DX: Z47.1 Aftercare following joint replacement surgery (principal); I13.0 Hypertensive heart and chronic kidney disease with heart failure and stage 1 through stage 4 chronic kidney disease, or unspecified chronic kidney disease; I50.30 Unspecified diastolic (congestive) heart failure; I42.9 Cardiomyopathy, unspecified; S72.011D Unspecified intracapsular fracture of right femur, subsequent encounter for closed fracture with routine healing; Z96.641 Presence of right artificial hip joint; E11.22 Type 2 diabetes mellitus with diabetic chronic kidney disease; E11.42 Type 2 diabetes mellitus with diabetic polyneuropathy; E78.5 Hyperlipidemia, unspecified; E03.9 Hypothyroidism, unspecified; F32.9 Major depressive disorder, single episode, unspecified; F10.20 Alcohol dependence, uncomplicated; I25.10 Atherosclerotic heart disease of native coronary artery without angina pectoris; I25.2 Old myocardial infarction; J44.9 Chronic obstructive pulmonary disease, unspecified; K21.9 Gastro-esophageal reflux disease without esophagitis; N18.3 Chronic kidney disease, stage 3 (moderate); Z90.2 Acquired absence of lung [part of]; Z95.810 Presence of automatic (implantable) cardiac defibrillator; Z87.891 Personal history of nicotine dependence; W19.XXXD Unspecified fall, subsequent encounter
CPT/HCPCS: 36415; 80048; 83036; 85025; 94640; 97110; 97116; 97161; 97166; 97530; 97535; A9270; J1650